=== PATIENT | female | born 1995 | race Caucasian/White ===

== ENCOUNTER → 2020-01-03 | Outpatient (CLI) | payer OTHER | LOC: CAT 13:36 | PROVIDERS: ATTEND Family Medicine | DX: R51.9 Headache, unspecified (principal); H93.19 Tinnitus, unspecified ear; H91.90 Unspecified hearing loss, unspecified ear ==

== ENCOUNTER → 2020-03-16 | Outpatient (CLI) | payer BC | LOC: LAB 13:46 | PROVIDERS: ATTEND Family Medicine | DX: Z20.828 Contact with and (suspected) exposure to other viral communicable diseases (principal) ==